=== PATIENT | male | born 1940 | race Caucasian/White ===

== ENCOUNTER → 2017-11-17 | Outpatient (CLI) | payer MEDICARE, BC ==
[2017-11-17 10:18] LABS: CREATININE FOR GFR 1.27 MG/DL (0.70-1.30); GLOMERULAR FILTRATION RATE 58.4 (>42)
[2017-11-17 10:18] LABS: BLOOD UREA NITROGEN 17 MG/DL (7-18)
== END ==
LOC: M LAB 09:15
DX: R10.31 Right lower quadrant pain (principal)
CPT/HCPCS: 82565

== ENCOUNTER → 2018-02-04 | Outpatient (CLI) | payer MEDICARE, BC | LOC: M EKG 09:44 | DX: Z01.818 Encounter for other preprocedural examination (principal); E78.00 Pure hypercholesterolemia, unspecified; R00.1 Bradycardia, unspecified; I45.10 Unspecified right bundle-branch block | CPT/HCPCS: 93005 ==

== ENCOUNTER 2018-02-08 07:28 | Day surgery (SDC) | payer MEDICARE, BC ==
[2018-02-08] MEDS: LR 1,000 ML IV ×2 (08:51)
[2018-02-08] MEDS ORDERED: ROCURONIUM BROMIDE 50 MG/5 ML VIAL As Ordered ×2 (10:18)
[2018-02-08] MEDS ORDERED: PROPOFOL 200 MG/20 ML VIAL As Ordered ×2 (10:18)
[2018-02-08] MEDS ORDERED: LIDOCAINE 2% INJ 100 MG/5 ML SDV (FOR ANES.) As Ordered ×2 (10:18)
[2018-02-08] MEDS ORDERED: MIDAZOLAM INJ 2 MG/2 ML VIAL (J2250) As Ordered ×2 (10:18)
[2018-02-08] MEDS ORDERED: fentaNYL 100 MCG/2 ML INJECTION (J3010) As Ordered ×4 (10:18→12:27)
[2018-02-08] MEDS ORDERED: dexameTHASONE 4 MG/ML 1ML VIAL (J1100) As Ordered ×2 (11:28)
[2018-02-08] MEDS ORDERED: KETOROLAC 60 MG/2 ML VIAL (J1885) As Ordered ×2 (11:28)
[2018-02-08] MEDS ORDERED: GLYCOPYRROLATE INJ 0.2 MG/ML 2 ML VIAL As Ordered ×2 (11:28)
[2018-02-08] MEDS ORDERED: ONDANSETRON 4MG/2ML VIAL (J2405) As Ordered ×2 (11:29)
[2018-02-08] MEDS: ceFAZolin SOD 1 GM in D5W MINI-BAG PLUS 50 ML IV (11:31)
[2018-02-08] MEDS: BUPIVACAINE/EPIN 0.25% 30 ML VIAL As Ordered ×2 (12:47)
[2018-02-08] MEDS ORDERED: LR 1,000 ML IV ×4 (13:15)
[2018-02-08] MEDS ORDERED: fentaNYL 100 MCG/2 ML INJECTION (J3010) IV ×2 (13:15)
[2018-02-08] MEDS ORDERED: NORCO, ANEXSIA 5/325MG TABLET (HYDROcodone/ACETAMINOPHEN) PO ×2 (13:15)
[2018-02-08] MEDS ORDERED: ONDANSETRON 4MG/2ML VIAL (J2405) IV ×4 (13:15→13:30)
[2018-02-08] MEDS ORDERED: PERCOCET 5MG/325MG TAB PO ×2 (13:15)
[2018-02-08] MEDS ORDERED: MORPHINE 4 MG/ML 1ML VIAL/SYRINGE (J2270) IV ×2 (13:30)
== END 2018-02-08 15:44 | disposition home or self-care (01) ==
LOC: M SDC 07:28
DX: K40.91 Unilateral inguinal hernia, without obstruction or gangrene, recurrent (principal); E78.5 Hyperlipidemia, unspecified; Z87.891 Personal history of nicotine dependence; Z79.82 Long term (current) use of aspirin; Z79.899 Other long term (current) drug therapy
CPT/HCPCS: 49650

== ENCOUNTER 2018-04-04 16:47 | Day surgery (SDC) | payer MEDICARE, BC ==
[2018-04-04 17:24] LABS: HEMATOCRIT 47.2 % (42.0-52.0); HEMOGLOBIN 15.6 g/dl (13.5-17.5); LYMPH % 25.3 % (24.0-44.0); MEAN CORPUSCULAR HEMOGLOBIN 30.2 pg (27.0-33.0); MEAN CORPUSCULAR HGB CONC 33.1 g/dl (32.0-36.5); MEAN CORPUSCULAR VOLUME 91.3 fl (80.0-96.0); MONO % 6.8 % (0.0-5.0); NEUTROPHILS % 66.7 % (36.0-66.0); PLATELET COUNT, AUTOMATED 155 10^3/uL (150-450); RED BLOOD COUNT 5.17 10^6/uL (4.30-6.10); RED CELL DISTRIBUTION WIDTH 14.2 % (11.5-14.5); WHITE BLOOD COUNT 10.2 10^3/uL (4.0-10.0)
[2018-04-04] MEDS ORDERED: LIDOCAINE 1% MDV 20ML VIAL As Ordered ×3 (17:24)
[2018-04-04 17:25] LABS: BASO % 0.4 % (0.0-1.0); EOS # 0.1 10^3/uL (0.0-0.50); EOS % 0.5 % (0.0-3.0); IMMATURE GRANULOCYTE % 0.3 % (0-3.0); LYMPH # 2.6 10^3/uL (1.5-4.5); MONO # 0.7 10^3/uL (0.0-0.8); NEUTROPHILS # 6.8 10^3/uL (1.8-7.7)
[2018-04-04 17:49] LABS: ALBUMIN 3.9 GM/DL (3.2-5.2); ALBUMIN/GLOBULIN RATIO 1.18 (1.00-1.93); ALKALINE PHOSPHATASE 91 U/L (45-117); ALT/SGPT 28 U/L (12-78); ANION GAP 8 MEQ/L (8-16); AST/SGOT 19 U/L (7-37); BILIRUBIN,DIRECT 0.2 MG/DL (0.0-0.2); BILIRUBIN,TOTAL 0.5 MG/DL (0.2-1.0); BLOOD UREA NITROGEN 30 MG/DL (7-18); CALCIUM LEVEL 9.5 MG/DL (8.8-10.2); CARBON DIOXIDE LEVEL 25 MEQ/L (21-32); CHLORIDE LEVEL 107 MEQ/L (98-107); CPK CREATINE PHOSPHOKINASE 85 U/L (39-308); CREATININE FOR GFR 1.93 MG/DL (0.70-1.30); FREE T4 1.04 NG/DL (0.76-1.46); GLUCOSE, FASTING 149 MG/DL (70-100); LIPASE 126 U/L (73-393); MB/CK RELATIVE INDEX 4.24 (< OR =4); NT-PRO BNP 1395 PG/ML (<450); POTASSIUM SERUM 4.6 MEQ/L (3.5-5.1); SODIUM LEVEL 140 MEQ/L (136-145); TOTAL PROTEIN 7.2 GM/DL (6.4-8.2); TROPONIN I 0.02 NG/ML (< 0.10)
[2018-04-04 18:08] LABS: INR 0.99; PROTHROMBIN TIME 13.2 SECONDS (12.1-14.4)
[2018-04-04 18:09] LABS: PARTIAL THROMBOPLASTIN TIME 29.9 SECONDS (25.4-37.6)
[2018-04-04] MEDS: ISOVUE-300 61% 50ML VIAL (Q9967) As Ordered ×3 (18:39)
[2018-04-04] MEDS: AMIODARONE 150MG/3ML INJ (J0282) As Ordered ×3 (18:39)
[2018-04-04] MEDS: AMIODARONE HCL 360 MG/200 ML PREMIXED BAG (NEXTERONE) As Ordered ×3 (19:02)
[2018-04-04] MEDS ORDERED: MIDAZOLAM INJ 2 MG/2 ML VIAL (J2250) As Ordered ×3 (19:18)
[2018-04-04] MEDS ORDERED: fentaNYL 100 MCG/2 ML INJECTION (J3010) As Ordered ×3 (19:21)
[2018-04-04] MEDS: ceFAZolin 2 GM/D5W 50 ML IV BAG (J0690 PER 500MG) As Ordered ×3 (19:45)
[2018-04-04] MEDS ORDERED: LIDOCAINE 2% INJ 100 MG/5 ML SDV (FOR ANES.) As Ordered ×3 (19:46)
[2018-04-04] MEDS ORDERED: PROPOFOL 200 MG/20 ML VIAL As Ordered ×6 (19:46)
[2018-04-04] MEDS: LIDOCAINE 1% SDV INJ 30 ML VIAL As Ordered ×3 (19:49)
[2018-04-04] MEDS ORDERED: zolPIDEM TARTRATE 5 MG TAB PO ×3 (20:45)
[2018-04-04] MEDS ORDERED: PERCOCET 5MG/325MG TAB PO ×3 (20:45)
[2018-04-04] MEDS: DOCUSATE SODIUM 100 MG CAP PO ×3 (21:00)
[2018-04-04] MEDS: LR 1,000 ML IV ×3 (21:15)
[2018-04-04] MEDS ORDERED: ONDANSETRON 4MG/2ML VIAL (J2405) IV ×3 (21:15)
[2018-04-04] MEDS ORDERED: fentaNYL 100 MCG/2 ML INJECTION (J3010) IV ×3 (21:15)
[2018-04-04] MEDS: ACETAMINOPHEN TAB 650MG DOSE (2X325MG) PO ×3 (22:16)
[2018-04-05] MEDS: ceFAZolin SOD 1 GM in D5W MINI-BAG PLUS 50 ML IV ×6 (04:11→11:50)
[2018-04-05] MEDS: ACETAMINOPHEN TAB 650MG DOSE (2X325MG) PO ×6 (04:12→08:37)
[2018-04-05 06:48] LABS: ALBUMIN 3.2 GM/DL (3.2-5.2); ANION GAP 9 MEQ/L (8-16); BLOOD UREA NITROGEN 26 MG/DL (7-18); CALCIUM LEVEL 8.7 MG/DL (8.8-10.2); CARBON DIOXIDE LEVEL 24 MEQ/L (21-32); CHLORIDE LEVEL 109 MEQ/L (98-107); CREATININE FOR GFR 1.45 MG/DL (0.70-1.30); GLUCOSE, FASTING 92 MG/DL (70-100); PHOSPHORUS LEVEL 3.2 MG/DL (2.5-4.9); POTASSIUM SERUM 3.8 MEQ/L (3.5-5.1); SODIUM LEVEL 142 MEQ/L (136-145)
[2018-04-05] MEDS: DOCUSATE SODIUM 100 MG CAP PO ×3 (08:37)
[2018-04-07 00:08] LABS: Lyme Disease IgG/IgM Antibodie <0.91 ISR (0.00-0.90); Lyme Disease IgM Ab Quantitati <0.80 index (0.00-0.79)
== END 2018-04-05 14:52 | disposition home or self-care (01) ==
LOC: M SDC 04-05 14:52 → M ED 16:47 → M SDC 18:20 → M PCU 21:39
DX: R55 Syncope and collapse (principal); I44.2 Atrioventricular block, complete; E78.00 Pure hypercholesterolemia, unspecified; I71.4 Abdominal aortic aneurysm, without rupture; I73.9 Peripheral vascular disease, unspecified; Z79.899 Other long term (current) drug therapy; Z96.1 Presence of intraocular lens; Z87.891 Personal history of nicotine dependence
CPT/HCPCS: 33208

== ENCOUNTER 2018-04-08 18:54 | Emergency (ER) | payer MEDICARE, BC ==
[2018-04-08 19:34] LABS: BASO % 0.3 % (0.0-1.0); EOS # 0.1 10^3/uL (0.0-0.50); EOS % 2.1 % (0.0-3.0); HEMATOCRIT 45.6 % (42.0-52.0); IMMATURE GRANULOCYTE % 0.2 % (0-3.0); LYMPH # 2.4 10^3/uL (1.5-4.5); LYMPH % 38.5 % (24.0-44.0); MEAN CORPUSCULAR HEMOGLOBIN 30.2 pg (27.0-33.0); MEAN CORPUSCULAR HGB CONC 32.9 g/dl (32.0-36.5); MEAN CORPUSCULAR VOLUME 91.9 fl (80.0-96.0); MONO # 0.5 10^3/uL (0.0-0.8); MONO % 8.3 % (0.0-5.0); NEUTROPHILS # 3.1 10^3/uL (1.8-7.7); NEUTROPHILS % 50.6 % (36.0-66.0); PLATELET COUNT, AUTOMATED 112 10^3/uL (150-450); RED BLOOD COUNT 4.96 10^6/uL (4.30-6.10); RED CELL DISTRIBUTION WIDTH 13.9 % (11.5-14.5); WHITE BLOOD COUNT 6.2 10^3/uL (4.0-10.0)
[2018-04-08 20:02] LABS: ALBUMIN 3.9 GM/DL (3.2-5.2); ALBUMIN/GLOBULIN RATIO 1.22 (1.00-1.93); ALKALINE PHOSPHATASE 94 U/L (45-117); ALT/SGPT 23 U/L (12-78); ANION GAP 7 MEQ/L (8-16); AST/SGOT 21 U/L (7-37); BILIRUBIN,DIRECT 0.2 MG/DL (0.0-0.2); BILIRUBIN,TOTAL 0.6 MG/DL (0.2-1.0); BLOOD UREA NITROGEN 23 MG/DL (7-18); CALCIUM LEVEL 9.8 MG/DL (8.8-10.2); CARBON DIOXIDE LEVEL 27 MEQ/L (21-32); CHLORIDE LEVEL 108 MEQ/L (98-107); CPK CREATINE PHOSPHOKINASE 78 U/L (39-308); GLOMERULAR FILTRATION RATE > 60.0 (>42); GLUCOSE, FASTING 91 MG/DL (70-100); LIPASE 133 U/L (73-393); MB/CK RELATIVE INDEX 3.33 (< OR =4); POTASSIUM SERUM 4.2 MEQ/L (3.5-5.1); SODIUM LEVEL 142 MEQ/L (136-145); TOTAL PROTEIN 7.1 GM/DL (6.4-8.2); TROPONIN I < 0.02 NG/ML (< 0.10)
[2018-04-08] MEDS: amLODIPine 5 MG TAB PO (22:20)
[2018-04-08 22:52] LABS: CPK CREATINE PHOSPHOKINASE 71 U/L (39-308); MB/CK RELATIVE INDEX 3.24 (< OR =4); TROPONIN I < 0.02 NG/ML (< 0.10)
== END 2018-04-09 00:25 | disposition home or self-care (01) ==
LOC: M ED 04-09 00:25
DX: I11.9 Hypertensive heart disease without heart failure (principal); R42 Dizziness and giddiness; E78.5 Hyperlipidemia, unspecified; Z87.891 Personal history of nicotine dependence; Z95.0 Presence of cardiac pacemaker; Z79.899 Other long term (current) drug therapy; Z79.82 Long term (current) use of aspirin
CPT/HCPCS: 71045

== ENCOUNTER 2019-02-15 19:20 | Emergency (ER) | payer MEDICARE, BC ==
[~2019-02-15] VITALS: Ht 180.3 cm; Wt 89.2 kg
[~2019-02-15 19:20] MED LIST: ASPI81TA85 PO; ATOR1TAB19 PO; CRES5TAB PO; NORV5TAB PO
[2019-02-15 19:21] VITALS: BP 170/70
[2019-02-15] MEDS ORDERED: OXYC-517 PO (19:30)
== END 2019-02-15 20:36 | disposition home or self-care (01) ==
LOC: M ED 19:20
DX: T85.848A Pain due to other internal prosthetic devices, implants and grafts, initial encounter (principal); Y92.9 Unspecified place or not applicable; Y93.9 Activity, unspecified; I51.9 Heart disease, unspecified; I10 Essential (primary) hypertension; Z87.891 Personal history of nicotine dependence; Z79.82 Long term (current) use of aspirin; Z79.899 Other long term (current) drug therapy; Z79.891 Long term (current) use of opiate analgesic

== ENCOUNTER 2019-05-27 16:36 | Emergency (ER) | payer MEDICARE, BC ==
[~2019-05-27] VITALS: Ht 180.3 cm; Wt 84.1 kg
[~2019-05-27 16:36] MED LIST changes: +OXYC-517 PO
[2019-05-27] MEDS ORDERED: traMADol 50 MG TAB PO ONE (18:45)
[2019-05-27] MEDS ORDERED: ACETAMINOPHEN TAB 650MG DOSE (2X325MG) PO ONE (18:45)
[2019-05-27 18:53] VITALS: BP 133/83
[2019-05-27] MEDS ORDERED: ULTR50TA8 PO (18:55)
--- NOTE | 2019-05-28 09:24 | REP ---
RIGHT KNEE, COMPLETE: 05/27/2019. CLINICAL HISTORY: Trauma, pain, and swelling. FINDINGS: Four views show a prominent suprapatellar effusion on the lateral view. I do not see loose body or osteochondral defect nor patellar subluxation. No visible displaced or depressed fracture. Proximal tibia and fibula are unremarkable. No joint space narrowing. No osteochondral lesion. IMPRESSION: 1. Suprapatellar joint effusion without visible or displaced fracture, subluxation, dislocation, or other acute bony finding. Minimal degenerative change. Electronically Signed by Glenn Rebolledo MD 05/28/2019 10:16 A
== END 2019-05-27 19:06 | disposition home or self-care (01) ==
LOC: M ED 16:36
DX: M25.461 Effusion, right knee (principal); I10 Essential (primary) hypertension; E78.00 Pure hypercholesterolemia, unspecified

== ENCOUNTER 2021-04-02 09:10 | Outpatient (CLI) | payer MEDICARE, BC ==
[~2021-04-02] VITALS: Ht 180.3 cm; Wt 81.9 kg
[~2021-04-02 09:10] MED LIST changes: -ASPI81TA85 PO; +ASPI81TA86 PO; +ULTR50TA8 PO
[2021-04-02] MEDS ORDERED: EPINEPHrine INJ 1 MG/ML 1ML AMP IM PRN (09:45)
[2021-04-02] MEDS ORDERED: diphenhydrAMINE 50MG/ML VIAL (J1200) IV PRN (09:45)
[2021-04-02] MEDS ORDERED: methylPREDNISolone 125MG 2ML VIAL IV PRN (09:45)
[2021-04-02] MEDS ORDERED: ALBUTEROL SULFATE 2.5 MG/0.5 ML INH NEB SOLN INH PRN (09:45)
[2021-04-02] MEDS ORDERED: NS 1,000 ML IV SCH (09:45)
[2021-04-02] MEDS ORDERED: ALBUTEROL 90 MCG/ACT 8GM HFA INHALER INH PRN (09:45)
[2021-04-02] MEDS ORDERED: BAMLANIVIMAB 700 MG, ETESEVIMAB 1,400 MG in NS 250 ML IV ONE (10:00)
[2021-04-02 10:10] VITALS: BP 154/67
[2021-04-02 11:46] VITALS: BP 138/66
[2021-04-02 12:16] VITALS: BP 150/65
[2021-04-02 12:52] VITALS: BP 147/64
[2021-04-02 12:59] VITALS: BP 147/64
[2021-04-02 13:59] VITALS: BP 132/61
== END 2021-04-02 14:20 | disposition home or self-care (01) ==
LOC: M OPCLI4PR 09:10 → M MS4PR 09:11 → M OPCLI4PR 14:20
PROVIDERS: ATTEND Physician Assistant Medical
DX: U07.1 COVID-19 (principal)
CPT/HCPCS: 96361; M0245

== ENCOUNTER → 2021-12-04 | Outpatient (CLI) | payer MEDICARE, BC | LOC: M RAD 12:54 | PROVIDERS: ATTEND Family Medicine | DX: N40.1 Benign prostatic hyperplasia with lower urinary tract symptoms (principal); R32 Unspecified urinary incontinence; N28.1 Cyst of kidney, acquired; R93.421 Abnormal radiologic findings on diagnostic imaging of right kidney ==

== ENCOUNTER → 2022-04-28 | Outpatient (CLI) | payer MEDICARE, BC ==
[~2022-04-28] MED LIST changes: +ISOVUE-370 76% 100ML VIAL As Ordered ONE
== END ==
LOC: M RAD 13:43
PROVIDERS: ATTEND Family Medicine
DX: Q61.02 Congenital multiple renal cysts (principal); N40.0 Benign prostatic hyperplasia without lower urinary tract symptoms
CPT/HCPCS: 74178; Q9967

== ENCOUNTER → 2023-02-17 | Outpatient (CLI) | payer MEDICARE, BC ==
[~2023-02-17] MED LIST changes: -ISOVUE-370 76% 100ML VIAL As Ordered ONE
== END ==
LOC: M RAD 07:55
PROVIDERS: ATTEND Family Medicine
DX: D69.6 Thrombocytopenia, unspecified (principal)

== ENCOUNTER 2023-10-22 07:57 | Emergency (ER) | payer MEDICARE ==
[~2023-10-22] VITALS: Ht 180.3 cm; Wt 81.6 kg
[~2023-10-22 07:57] MED LIST changes: +ASPI81CH33 PO; +B-12100021 PO; +SILD20TA11 PO
[2023-10-22] MEDS ORDERED: NITROGLYCERIN 2% OINT 1 GM *U/D* PKT TOP ONE (08:25)
[2023-10-22 08:46] LABS: BASO % 0.6 % (0.0-1.0); EOS # 0.2 10^3/uL (0.0-0.5); EOS % 3.1 % (0.0-3.0); HEMATOCRIT 43.9 % (42.0-52.0); HEMOGLOBIN 14.8 g/dl (13.5-17.5); MEAN CORPUSCULAR HGB CONC 33.7 g/dl (32.0-36.5); MONO # 0.5 10^3/uL (0.0-0.8); MONO % 9.4 % (2.0-8.0); NEUTROPHILS # 2.5 10^3/uL (1.5-8.5); NEUTROPHILS % 48.7 % (36.0-66.0); PLATELET COUNT, AUTOMATED 123 10^3/uL (150-450); RED BLOOD COUNT 4.93 10^6/uL (4.30-6.10); WHITE BLOOD COUNT 5.2 10^3/uL (4.0-10.0)
[2023-10-22 08:57] VITALS: BP 157/73
[2023-10-22] MEDS: NITROGLYCERIN 2% OINT 1 GM *U/D* PKT TOP ONE (08:57)
[2023-10-22 08:59] LABS: D-DIMER QUANT 0.65 ug/mL (<0.5); INR 0.97; PROTHROMBIN TIME 12.6 SECONDS (12.5-14.5)
[2023-10-22 09:08] LABS: C REACTIVE PROTEIN QUANTITATIV < 0.40 MG/DL (<1.0)
[2023-10-22 09:09] LABS: ALBUMIN 3.4 G/DL (3.2-5.2); ALKALINE PHOSPHATASE 94 U/L (46-116); ALT/SGPT 21 U/L (7.0-40); AST/SGOT 21 U/L (<34); BILIRUBIN,DIRECT 0.2 MG/DL (<0.4); BILIRUBIN,TOTAL 0.6 MG/DL (0.3-1.2); BLOOD UREA NITROGEN 31 MG/DL (9-23); CALCIUM LEVEL 9.2 MG/DL (8.3-10.6); CARBON DIOXIDE LEVEL 25 MMOL/L (20-31); CHLORIDE LEVEL 106 MMOL/L (98-107); CK-MB VALUE MASS 5.3 NG/ML (<3.6); CPK CREATINE PHOSPHOKINASE 147 U/L (46-171); CREATININE FOR GFR 1.46 MG/DL (0.70-1.30); GLUCOSE, FASTING 102 MG/DL (74-106); SODIUM LEVEL 140 MMOL/L (136-145); TOTAL PROTEIN 6.3 G/DL (5.7-8.2)
[2023-10-22 09:11] LABS: FREE T4 1.12 NG/DL (0.89-1.76)
[2023-10-22] MEDS ORDERED: ISOVUE-370 76% 100ML VIAL As Ordered ONE (09:13)
[2023-10-22] MEDS: NS 1,000 ML IV ONE (09:27)
[2023-10-22 10:26] LABS: CK-MB VALUE MASS 4.7 NG/ML (<3.6); MB/CK RELATIVE INDEX 3.79 (< OR =4)
[2023-10-22 10:45] VITALS: BP 157/74; O2SAT 96
[2023-10-22] MEDS ORDERED: AMLO10TA PO (11:11)
[2023-10-22 11:25] VITALS: TEMP 98
== END 2023-10-22 11:25 | disposition home or self-care (01) ==
LOC: M ED 07:57
DX: I10 Essential (primary) hypertension (principal); N17.9 Acute kidney failure, unspecified; E78.5 Hyperlipidemia, unspecified; Z87.891 Personal history of nicotine dependence; Z79.82 Long term (current) use of aspirin; Z79.899 Other long term (current) drug therapy
CPT/HCPCS: 70450; 71045; 71275; 80048; 80076; 82140; 82550; 82553; 83605; 83880; 84439; 84443; 84484; 85025; 85379; 85610; 86140; 93005; 93041; 94760; 96360; 96361; 99285; Q9967

== ENCOUNTER → 2024-04-14 | Outpatient (CLI) | payer MEDICARE, BC ==
[~2024-04-14] MED LIST changes: +AMLO10TA PO; +ISOVUE-M 300 61% 15ML VIAL As Ordered ONE
[2024-04-14 13:10] VITALS: TEMP 97.2
[2024-04-14 15:15] VITALS: BP 161/73; O2SAT 98
== END ==
LOC: M IRPRO 12:39
PROVIDERS: ATTEND Orthopaedic Surgery
DX: M54.50 Low back pain, unspecified (principal)
CPT/HCPCS: 62284; 72131; Q9967

== ENCOUNTER → 2024-08-29 | Outpatient (CLI) | payer MEDICARE, BC ==
[~2024-08-29] MED LIST changes: -ISOVUE-M 300 61% 15ML VIAL As Ordered ONE
[2024-08-29 19:55] LABS: HEMATOCRIT 47.4 % (42.0-52.0); HEMOGLOBIN 15.4 g/dl (13.5-17.5); MEAN CORPUSCULAR HEMOGLOBIN 29.7 pg (27.0-33.0); MEAN CORPUSCULAR HGB CONC 32.5 g/dl (32.0-36.5); MEAN CORPUSCULAR VOLUME 91.5 fl (80.0-96.0); PLATELET COUNT, AUTOMATED 125 10^3/uL (150-450); RED BLOOD COUNT 5.18 10^6/uL (4.30-6.10); WHITE BLOOD COUNT 6.7 10^3/uL (4.0-10.0)
[2024-08-29 20:18] LABS: CALCIUM LEVEL 9.2 MG/DL (8.3-10.6); CREATININE FOR GFR 1.38 MG/DL (0.70-1.30); GLOMERULAR FILTRATION RATE 52.1 (>35); MAGNESIUM LEVEL 1.9 MG/DL (1.8-2.4); POTASSIUM SERUM 4.9 MMOL/L (3.5-5.1)
[2024-08-29 20:22] LABS: THYROID STIMULATING HORMONE 1.051 uIU/ML (0.55-4.78)
== END ==
LOC: M PLALAB 14:56
PROVIDERS: ATTEND Physician Assistant
DX: I48.0 Paroxysmal atrial fibrillation (principal)